=== PATIENT | male | born 1960 | race Caucasian/White ===

== ENCOUNTER 2021-12-02 00:01 | Inpatient (IN) | payer MEDICAID ==
[~2021-12-02] VITALS: Ht 175.3 cm; Wt 75.8 kg
[2021-12-02] VITALS (8 sets, daily range): BP systolic 96–132; BP diastolic 70–85
[2021-12-02] MEDS ORDERED: PIPERACILLIN-TAZOB 3.375GM 100 ML IV ONE (00:45)
[2021-12-02] MEDS ORDERED: ACETAMINOPHEN 650 mg PER 20.3 mL UD GT PRN (00:45)
[2021-12-02] MEDS ORDERED: ALBUTEROL SULF 2.5 MG/0.5ML(0.5%) NEB SOLN ONE (01:13)
[2021-12-02] MEDS ORDERED: BUPR150T8 PO (01:17)
[2021-12-02] MEDS ORDERED: HYDR-4798 (01:17)
[2021-12-02] MEDS ORDERED: TIZA4TAB9 PO (01:17)
[2021-12-02] MEDS ORDERED: GABA300C PO (01:17)
[2021-12-02] MEDS: HYDROcodone-ACET 10/325MG TAB PO PRN ×3 (01:55→17:50)
[2021-12-02 02:20] LABS: Basophils # (auto) 0 10 ^3/uL (0-0.2); Basophils % (auto) 0.4 % (0.0-2.0); Eosinophils # (auto) 0.1 10 ^3/uL (0-0.8); Eosinophils % (auto) 0.7 % (0.0-7.0); Hematocrit 35.8 % (41.0-53.0); Lymphocytes # (auto) 1.5 10 ^3/uL (0.4-5.4); Lymphocytes % (auto) 12.8 % (10.0-50.0); Mean Corpuscular Hemoglobin 30.9 pg (28.0-32.0); Mean Corpuscular Hgb Conc. 36.2 g/dL (32.0-36.0); Mean Corpuscular Volume 85.2 fL (80.0-100.0); Monocytes # (auto) 0.8 10 ^3/uL (0-1.3); Monocytes % (auto) 6.7 % (0.0-12.0); Neutrophils # (auto) 9.2 10 ^3/uL (1.6-8.6); Neutrophils % (auto) 79.4 % (37.0-80.0); Red Cell Distribution Width 12.7 % (11.8-14.3); White Blood Cell 11.5 10^3/uL (4.4-10.8)
[2021-12-02] MEDS: SODIUM CHLORIDE 0.9% 1,000 ML IV SCH ×2 (02:22→16:20)
[2021-12-02 02:34] LABS: Albumin 3.5 g/dL (3.4-5.0); BUN/Creatinine Ratio 13.9; Calcium 8.3 mg/dL (8.5-10.1)
[2021-12-02 02:37] LABS: Total Protein 6.9 g/dL (6.4-8.2)
[2021-12-02 02:44] LABS: Potassium 2.6 mmol/L (3.5-5.1)
[2021-12-02] MEDS ORDERED: SODIUM CHLORIDE 1 GM TAB PO ONE (03:00)
[2021-12-02] MEDS ORDERED: MIDAZOLAM HCL 2MG/2ML 2ml VIAL (1mg/ml) IV PRN ×2 (03:00→12:45)
[2021-12-02] MEDS: MORPHINE SULFATE INJ 2 MG/ml SYRG IV PRN ×3 (03:10→18:52)
[2021-12-02] MEDS ORDERED: SODIUM CHL 3% 500 ML IV ONE (03:30)
[2021-12-02] MEDS: ALBUTEROL SULF 2.5 MG/0.5ML(0.5%) NEB SOLN NEB PRN (05:39)
[2021-12-02] MEDS ORDERED: NITROGLYCERIN 0.4 MG SL TAB SL PRN ×2 (07:00)
[2021-12-02] MEDS ORDERED: MORPHINE SULFATE INJ 2 MG/ml SYRG IV PRN ×2 (07:00)
[2021-12-02] MEDS: POTASSIUM CHLORIDE 20 MEQ, LIDOCAINE 1% (LOCAL ANESTH.) 2 ML in SODIUM CHL 0.9% 100 ML IV SCH ×3 (07:01→19:13)
[2021-12-02] MEDS: PIPERACILLIN-TAZOB 3.375GM 100 ML IV SCH ×2 (09:46→17:37)
[2021-12-02] MEDS: PANTOPRAZOLE 40 MG/10 ML VIAL INJ IV SCH (09:46)
[2021-12-02 12:02] LABS: Magnesium 1.7 mg/dL (1.6-2.6); Phosphorus 2.3 mg/dL (2.5-4.90)
[2021-12-02 12:28] LABS: INR 0.94 (0.9-1.15); Partial Thromboplastin Time 27.2 sec (24.6-33.4)
[2021-12-02] MEDS ORDERED: LIDOCAINE 1% (LOCAL ANESTH.) PF 5ml SDV ID ONE (14:45)
[2021-12-02] MEDS: SODIUM CHLOR 0.9% PF (SALINE LOCK) 10ML VIAL/SYR IV SCH ×3 (15:33→21:46)
[2021-12-02 21:41] LABS: Albumin 2.8 g/dL (3.4-5.0); BUN/Creatinine Ratio 11.3; Calcium 7.4 mg/dL (8.5-10.1); Magnesium 1.5 mg/dL (1.6-2.6)
[2021-12-02 21:44] LABS: Total Protein 5.6 g/dL (6.4-8.2)
[2021-12-03] MEDS: SODIUM CHLORIDE 0.9% 1,000 ML IV SCH ×2 (01:28→14:06)
[2021-12-03] MEDS: PIPERACILLIN-TAZOB 3.375GM 100 ML IV SCH ×3 (01:31→18:40)
[2021-12-03] MEDS: HYDROcodone-ACET 10/325MG TAB PO PRN ×3 (02:08→19:06)
[2021-12-03 04:58] VITALS: BP 113/67
[2021-12-03 05:25] LABS: Calcium 7.2 mg/dL (8.5-10.1)
[2021-12-03 05:31] LABS: Albumin 2.6 g/dL (3.4-5.0); BUN/Creatinine Ratio 12.5; Bilirubin, Total 0.9 mg/dL (0.2-1.0); Total Protein 5.3 g/dL (6.4-8.2)
[2021-12-03] MEDS: SODIUM CHLOR 0.9% PF (SALINE LOCK) 10ML VIAL/SYR IV SCH ×5 (05:45→22:17)
[2021-12-03 05:47] LABS: Potassium 2.9 mmol/L (3.5-5.1)
[2021-12-03 05:54] LABS: Basophils # (auto) 0 10 ^3/uL (0-0.2); Basophils % (auto) 0.3 % (0.0-2.0); Eosinophils # (auto) 0.1 10 ^3/uL (0-0.8); Eosinophils % (auto) 0.6 % (0.0-7.0); Hematocrit 31.2 % (41.0-53.0); Hemoglobin 11.3 g/dL (13.5-17.5); Lymphocytes # (auto) 1.2 10 ^3/uL (0.4-5.4); Lymphocytes % (auto) 11.2 % (10.0-50.0); Mean Corpuscular Hemoglobin 30.7 pg (28.0-32.0); Mean Corpuscular Hgb Conc. 36.1 g/dL (32.0-36.0); Mean Corpuscular Volume 85.1 fL (80.0-100.0); Monocytes % (auto) 9.2 % (0.0-12.0); Neutrophils # (auto) 8.2 10 ^3/uL (1.6-8.6); Neutrophils % (auto) 78.7 % (37.0-80.0); Red Blood Cells 3.67 10^6/uL (4.5-5.90); Red Cell Distribution Width 12.6 % (11.8-14.3); White Blood Cell 10.4 10^3/uL (4.4-10.8)
[2021-12-03] MEDS ORDERED: POTASSIUM PHOSPHATE 26.4 MEQ in SODIUM CHL 0.9% 100 ML IV ONE (06:00)
[2021-12-03] MEDS: ALBUTEROL SULF 2.5 MG/0.5ML(0.5%) NEB SOLN NEB PRN (06:10)
[2021-12-03] MEDS: MAGNESIUM SULFATE 1GM/100ML 100 ML IV SCH ×2 (06:13→07:18)
[2021-12-03 08:00] VITALS: BP 101/63
[2021-12-03 09:00] VITALS: BP 101/63
[2021-12-03] MEDS: PANTOPRAZOLE 40 MG/10 ML VIAL INJ IV SCH (10:04)
[2021-12-03] MEDS: ACETAMINOPHEN 500 MG TAB PO PRN (12:25)
[2021-12-03 13:08] VITALS: BP 111/55
[2021-12-03 15:02] LABS: Calcium 7.1 mg/dL (8.5-10.1)
[2021-12-03] MEDS: POTASSIUM CHLORIDE 20 MEQ, LIDOCAINE 1% (LOCAL ANESTH.) 2 ML in SODIUM CHL 0.9% 100 ML IV SCH ×3 (15:02→20:46)
[2021-12-03] MEDS: MORPHINE SULFATE INJ 2 MG/ml SYRG IV PRN (15:10)
[2021-12-03 15:36] LABS: Potassium 2.6 mmol/L (3.5-5.1)
[2021-12-03] MEDS ORDERED: SODIUM CHL 3% 500 ML IV ONE (16:00)
[2021-12-03 17:00] VITALS: BP 107/62
[2021-12-03 22:00] VITALS: BP 116/66
[2021-12-04] MEDS: PIPERACILLIN-TAZOB 3.375GM 100 ML IV SCH ×3 (02:13→18:27)
[2021-12-04] MEDS: SODIUM CHLORIDE 0.9% 1,000 ML IV SCH ×2 (02:23→15:15)
[2021-12-04 05:00] VITALS: BP 116/92
[2021-12-04] MEDS: SODIUM CHLOR 0.9% PF (SALINE LOCK) 10ML VIAL/SYR IV SCH ×5 (05:12→22:59)
[2021-12-04 09:03] VITALS: BP 108/57
[2021-12-04] MEDS: PANTOPRAZOLE 40 MG/10 ML VIAL INJ IV SCH (10:00)
[2021-12-04 13:00] VITALS: BP 124/67
[2021-12-04 14:16] LABS: Albumin 2.5 g/dL (3.4-5.0); Calcium 7.2 mg/dL (8.5-10.1)
[2021-12-04 14:19] LABS: BUN/Creatinine Ratio 8.3; Bilirubin, Total 0.9 mg/dL (0.2-1.0); Total Protein 5.3 g/dL (6.4-8.2)
[2021-12-04 14:25] LABS: Potassium 2.5 mmol/L (3.5-5.1)
[2021-12-04 17:00] VITALS: BP 130/68
[2021-12-04] MEDS ORDERED: POTASSIUM CHL 20MEQ/100ML 100 ML IV SCH (19:45)
[2021-12-04] MEDS ORDERED: SODIUM CHL 3% 500 ML IV ONE ×2 (19:45)
[2021-12-04 20:11] LABS: Magnesium 1.6 mg/dL (1.6-2.6); Phosphorus 1.6 mg/dL (2.5-4.90)
[2021-12-04] MEDS ORDERED: POTASSIUM CHLORIDE 20 MEQ, LIDOCAINE 1% (LOCAL ANESTH.) 2 ML in SODIUM CHL 0.9% 100 ML IV SCH (21:00)
[2021-12-04] MEDS: MAGNESIUM SULFATE 1GM/100ML 100 ML IV SCH ×2 (21:39→22:58)
[2021-12-04] MEDS: POTASSIUM CHL 20MEQ/100ML 100 ML IV SCH (21:42)
[2021-12-04 22:50] VITALS: BP 109/71
[2021-12-04] MEDS: DEMECLOCYCLINE HCL 150 MG TAB PO SCH (22:59)
[2021-12-04] MEDS: ACETAMINOPHEN 500 MG TAB PO PRN (23:59)
[2021-12-05] MEDS: POTASSIUM CHL 20MEQ/100ML 100 ML IV SCH ×5 (01:16→16:48)
[2021-12-05 01:29] VITALS: BP 109/71
[2021-12-05] MEDS: PIPERACILLIN-TAZOB 3.375GM 100 ML IV SCH ×2 (01:36→09:27)
[2021-12-05] MEDS: SODIUM CHLOR 0.9% PF (SALINE LOCK) 10ML VIAL/SYR IV SCH ×5 (05:04→21:42)
[2021-12-05 05:15] VITALS: BP 116/70
[2021-12-05 06:31] LABS: Albumin 2.6 g/dL (3.4-5.0); Bilirubin, Total 0.9 mg/dL (0.2-1.0); Magnesium 1.8 mg/dL (1.6-2.6); Phosphorus 1.4 mg/dL (2.5-4.90); Total Protein 5.5 g/dL (6.4-8.2)
[2021-12-05 06:32] LABS: Potassium 2.5 mmol/L (3.5-5.1)
[2021-12-05 06:44] LABS: Basophils # (auto) 0 10 ^3/uL (0-0.2); Basophils % (auto) 0.4 % (0.0-2.0); Eosinophils # (auto) 0.1 10 ^3/uL (0-0.8); Eosinophils % (auto) 0.6 % (0.0-7.0); Hematocrit 31.4 % (41.0-53.0); Hemoglobin 11.4 g/dL (13.5-17.5); Lymphocytes # (auto) 1.2 10 ^3/uL (0.4-5.4); Lymphocytes % (auto) 11.3 % (10.0-50.0); Mean Corpuscular Hemoglobin 30.4 pg (28.0-32.0); Mean Corpuscular Hgb Conc. 36.2 g/dL (32.0-36.0); Neutrophils # (auto) 8.5 10 ^3/uL (1.6-8.6); Neutrophils % (auto) 78.7 % (37.0-80.0); Red Blood Cells 3.74 10^6/uL (4.5-5.90); Red Cell Distribution Width 13.1 % (11.8-14.3); White Blood Cell 10.8 10^3/uL (4.4-10.8)
[2021-12-05] MEDS: PANTOPRAZOLE 40 MG/10 ML VIAL INJ IV SCH (09:27)
[2021-12-05] MEDS: DEMECLOCYCLINE HCL 150 MG TAB PO SCH ×2 (09:32→21:41)
[2021-12-05] MEDS ORDERED: POTASSIUM CHL 20MEQ/100ML 100 ML IV SCH (10:30)
[2021-12-05] MEDS ORDERED: SODIUM CHL 3% 500 ML IV ONE (10:30)
[2021-12-05] MEDS ORDERED: MAGNESIUM SULFATE 1GM/100ML 100 ML IV PRN ×2 (10:30)
[2021-12-05 13:00] VITALS: BP 116/75
[2021-12-05 16:37] VITALS: BP 134/83
[2021-12-05] MEDS: HYDROcodone-ACET 10/325MG TAB PO PRN ×2 (16:47→22:40)
[2021-12-05] MEDS: cefTRIAXone 1GM/50ML D5W 50 ML IV SCH (16:48)
[2021-12-05] MEDS: MAGNESIUM SULFATE 1GM/100ML 100 ML IV PRN (21:42)
[2021-12-05 22:00] VITALS: BP 112/73
[2021-12-06 05:00] VITALS: BP 131/78
[2021-12-06] MEDS: SODIUM CHLOR 0.9% PF (SALINE LOCK) 10ML VIAL/SYR IV SCH ×5 (06:07→21:18)
[2021-12-06 09:00] VITALS: BP 132/77
[2021-12-06] MEDS: PANTOPRAZOLE 40 MG/10 ML VIAL INJ IV SCH (09:28)
[2021-12-06] MEDS: cefTRIAXone 1GM/50ML D5W 50 ML IV SCH (09:28)
[2021-12-06] MEDS: DEMECLOCYCLINE HCL 150 MG TAB PO SCH ×2 (09:29→22:39)
[2021-12-06] MEDS: HYDROcodone-ACET 10/325MG TAB PO PRN ×2 (09:30→19:54)
[2021-12-06 11:11] LABS: Albumin 2.6 g/dL (3.4-5.0); BUN/Creatinine Ratio 6.4; Calcium 7.1 mg/dL (8.5-10.1)
[2021-12-06 11:13] LABS: Bilirubin, Total 0.5 mg/dL (0.2-1.0); Total Protein 5.7 g/dL (6.4-8.2)
[2021-12-06 11:30] LABS: Potassium 2.3 mmol/L (3.5-5.1)
[2021-12-06] MEDS ORDERED: SODIUM CHL 3% 250 ML IV ONE (12:30)
[2021-12-06 13:00] VITALS: BP 108/59
[2021-12-06] MEDS: POTASSIUM CHL 20 Meq TABLET PO SCH ×2 (13:09→17:20)
[2021-12-06 17:00] VITALS: BP 118/71
[2021-12-06 22:00] VITALS: BP 100/52
[2021-12-07] MEDS: POTASSIUM CHL 20 Meq TABLET PO SCH ×4 (00:38→23:24)
[2021-12-07 05:00] VITALS: BP 125/74
[2021-12-07] MEDS: SODIUM CHLOR 0.9% PF (SALINE LOCK) 10ML VIAL/SYR IV SCH ×5 (06:29→23:21)
[2021-12-07] MEDS: HYDROcodone-ACET 10/325MG TAB PO PRN ×2 (06:52→15:32)
[2021-12-07 07:48] LABS: BUN/Creatinine Ratio 7.4; Calcium 7.7 mg/dL (8.5-10.1); Magnesium 1.8 mg/dL (1.6-2.6)
[2021-12-07 08:19] LABS: Potassium 2.7 mmol/L (3.5-5.1)
[2021-12-07] MEDS ORDERED: POTASSIUM CHL 20 Meq TABLET PO SCH (08:30)
[2021-12-07 09:00] VITALS: BP 133/76
[2021-12-07] MEDS: cefTRIAXone 1GM/50ML D5W 50 ML IV SCH (09:00)
[2021-12-07] MEDS ORDERED: POTASSIUM CHL 20MEQ/100ML 100 ML IV SCH ×3 (09:00→19:30)
[2021-12-07] MEDS: PANTOPRAZOLE 40 MG/10 ML VIAL INJ IV SCH (10:00)
[2021-12-07] MEDS: DEMECLOCYCLINE HCL 150 MG TAB PO SCH ×2 (12:48→23:22)
[2021-12-07] MEDS ORDERED: MAGNESIUM SULFATE 1GM/100ML 100 ML IV ONE ×2 (15:30→17:00)
[2021-12-07 17:00] VITALS: BP 123/73
[2021-12-07] MEDS ORDERED: SODIUM CHL 3% 250 ML IV ONE (18:30)
[2021-12-07] MEDS: MAGNESIUM SULFATE 1GM/100ML 100 ML IV PRN (18:58)
[2021-12-07 22:00] VITALS: BP 128/82
[2021-12-08] MEDS: HYDROcodone-ACET 10/325MG TAB PO PRN ×3 (02:16→16:03)
[2021-12-08] MEDS: POTASSIUM CHL 20 Meq TABLET PO SCH ×4 (02:16→15:56)
[2021-12-08 05:00] VITALS: BP 122/88
[2021-12-08 06:34] LABS: Calcium 7.5 mg/dL (8.5-10.1); Magnesium 2.1 mg/dL (1.6-2.6); Potassium 3.3 mmol/L (3.5-5.1)
[2021-12-08] MEDS: SODIUM CHLOR 0.9% PF (SALINE LOCK) 10ML VIAL/SYR IV SCH ×5 (06:34→23:15)
[2021-12-08] MEDS ORDERED: SODIUM CHL 3% 300 ML IV ONE (07:30)
[2021-12-08 09:00] VITALS: BP 115/79
[2021-12-08] MEDS: POTASSIUM CHL 20MEQ/100ML 100 ML IV SCH ×2 (09:03→15:55)
[2021-12-08] MEDS: PANTOPRAZOLE 40 MG/10 ML VIAL INJ IV SCH (09:04)
[2021-12-08] MEDS: cefTRIAXone 1GM/50ML D5W 50 ML IV SCH (09:04)
[2021-12-08] MEDS: DEMECLOCYCLINE HCL 150 MG TAB PO SCH ×2 (09:27→23:15)
[2021-12-08 13:00] VITALS: BP 125/75
[2021-12-08 17:00] VITALS: BP 110/71
[2021-12-08 22:00] VITALS: BP 101/56
[2021-12-09] VITALS (7 sets, daily range): BP systolic 122–141; BP diastolic 68–91
[2021-12-09] MEDS: HYDROcodone-ACET 10/325MG TAB PO PRN ×3 (02:28→22:07)
[2021-12-09] MEDS: SODIUM CHLOR 0.9% PF (SALINE LOCK) 10ML VIAL/SYR IV SCH ×5 (05:13→22:22)
[2021-12-09 10:38] LABS: Calcium 7.8 mg/dL (8.5-10.1); Potassium 3.4 mmol/L (3.5-5.1)
[2021-12-09 10:44] LABS: Albumin 2.8 g/dL (3.4-5.0); BUN/Creatinine Ratio 11.5; Bilirubin, Total 0.3 mg/dL (0.2-1.0); Magnesium 1.8 mg/dL (1.6-2.6)
[2021-12-09] MEDS: cefTRIAXone 1GM/50ML D5W 50 ML IV SCH (11:12)
[2021-12-09] MEDS: PANTOPRAZOLE 40 MG/10 ML VIAL INJ IV SCH (11:12)
[2021-12-09] MEDS: DEMECLOCYCLINE HCL 150 MG TAB PO SCH ×2 (11:13→22:22)
[2021-12-09] MEDS ORDERED: POTASSIUM CHL 20MEQ/100ML 100 ML IV ONE (11:20)
[2021-12-09] MEDS: POTASSIUM CHL 20MEQ/100ML 100 ML IV SCH ×2 (12:08→16:58)
[2021-12-09] MEDS: MAGNESIUM SULFATE 1GM/100ML 100 ML IV SCH ×2 (15:36→16:59)
[2021-12-09] MEDS ORDERED: SODIUM CHL 3% 250 ML IV ONE (18:15)
[2021-12-09 19:07] LABS: Calcium 8.4 mg/dL (8.5-10.1); Magnesium 2.2 mg/dL (1.6-2.6); Potassium 4.1 mmol/L (3.5-5.1)
[2021-12-09 19:10] LABS: BUN/Creatinine Ratio 11.6
[2021-12-09] MEDS ORDERED: ZOLPIDEM TARTRATE 5 MG TAB PO ONE (22:00)
[2021-12-10 05:00] VITALS: BP 139/77
[2021-12-10] MEDS: SODIUM CHLOR 0.9% PF (SALINE LOCK) 10ML VIAL/SYR IV SCH ×5 (06:28→22:17)
[2021-12-10 07:34] LABS: BUN/Creatinine Ratio 12.1; Calcium 7.9 mg/dL (8.5-10.1); Potassium 3.6 mmol/L (3.5-5.1)
[2021-12-10 07:37] LABS: Bilirubin, Total 0.5 mg/dL (0.2-1.0); Total Protein 6.2 g/dL (6.4-8.2)
[2021-12-10 08:00] VITALS: BP 141/75
[2021-12-10] MEDS ORDERED: POTASSIUM CHL 20MEQ/100ML 100 ML IV ONE (08:15)
[2021-12-10] MEDS ORDERED: SODIUM CHL 3% 300 ML IV ONE (08:15)
[2021-12-10 08:21] VITALS: BP 143/93
[2021-12-10] MEDS: cefTRIAXone 1GM/50ML D5W 50 ML IV SCH (09:33)
[2021-12-10] MEDS: HYDROcodone-ACET 10/325MG TAB PO PRN ×2 (09:33→22:18)
[2021-12-10] MEDS: PANTOPRAZOLE 40 MG/10 ML VIAL INJ IV SCH (09:34)
[2021-12-10] MEDS: DEMECLOCYCLINE HCL 150 MG TAB PO SCH ×2 (09:35→22:17)
[2021-12-10 12:00] VITALS: BP 141/85
[2021-12-10] MEDS: MORPHINE SULFATE INJ 2 MG/ml SYRG IV PRN (13:32)
[2021-12-10 16:45] VITALS: BP 131/84
[2021-12-10 22:00] VITALS: BP 155/87
[2021-12-10] MEDS: POTASSIUM CHL 20 Meq TABLET PO SCH (22:18)
[2021-12-10] MEDS: ZOLPIDEM TARTRATE 5 MG TAB PO PRN (22:31)
[2021-12-11 05:00] VITALS: BP 141/78
[2021-12-11 05:14] LABS: Basophils # (auto) 0.1 10 ^3/uL (0-0.2); Basophils % (auto) 1.2 % (0.0-2.0); Eosinophils # (auto) 0.2 10 ^3/uL (0-0.8); Eosinophils % (auto) 2.4 % (0.0-7.0); Hematocrit 33.8 % (41.0-53.0); Hemoglobin 11.9 g/dL (13.5-17.5); Lymphocytes # (auto) 1.3 10 ^3/uL (0.4-5.4); Lymphocytes % (auto) 18.7 % (10.0-50.0); Mean Corpuscular Hemoglobin 30.3 pg (28.0-32.0); Mean Corpuscular Hgb Conc. 35.3 g/dL (32.0-36.0); Mean Corpuscular Volume 85.8 fL (80.0-100.0); Monocytes # (auto) 0.8 10 ^3/uL (0-1.3); Monocytes % (auto) 10.8 % (0.0-12.0); Neutrophils # (auto) 4.8 10 ^3/uL (1.6-8.6); Neutrophils % (auto) 66.9 % (37.0-80.0); Red Blood Cells 3.94 10^6/uL (4.5-5.90); Red Cell Distribution Width 13.6 % (11.8-14.3); White Blood Cell 7.2 10^3/uL (4.4-10.8)
[2021-12-11 05:42] LABS: BUN/Creatinine Ratio 21.2; Calcium 8.1 mg/dL (8.5-10.1); Potassium 3.3 mmol/L (3.5-5.1)
[2021-12-11] MEDS: SODIUM CHLOR 0.9% PF (SALINE LOCK) 10ML VIAL/SYR IV SCH ×5 (06:45→21:47)
[2021-12-11 08:53] VITALS: BP 158/95
[2021-12-11] MEDS: PANTOPRAZOLE 40 MG/10 ML VIAL INJ IV SCH (09:57)
[2021-12-11] MEDS: cefTRIAXone 1GM/50ML D5W 50 ML IV SCH (09:57)
[2021-12-11] MEDS: POTASSIUM CHL 20 Meq TABLET PO SCH ×2 (10:08→21:48)
[2021-12-11] MEDS: HYDROcodone-ACET 10/325MG TAB PO PRN ×2 (10:09→19:33)
[2021-12-11 12:51] VITALS: BP 147/81
[2021-12-11] MEDS: DEMECLOCYCLINE HCL 150 MG TAB PO SCH ×2 (12:53→21:47)
[2021-12-11] MEDS ORDERED: SODIUM CHL 3% 300 ML IV ONE (16:00)
[2021-12-11] MEDS ORDERED: POTASSIUM CHL 20 Meq TABLET PO ONE (16:15)
[2021-12-11 17:00] VITALS: BP 151/90
[2021-12-11] MEDS: ZOLPIDEM TARTRATE 5 MG TAB PO PRN (21:48)
[2021-12-11 22:00] VITALS: BP 122/69
[2021-12-11 23:30] LABS: Calcium 7.8 mg/dL (8.5-10.1); Potassium 3.4 mmol/L (3.5-5.1)
[2021-12-12] MEDS: POTASSIUM CHL 20MEQ/100ML 100 ML IV SCH ×2 (00:52→06:07)
[2021-12-12] MEDS: HYDROcodone-ACET 10/325MG TAB PO PRN ×3 (04:47→22:59)
[2021-12-12 05:00] VITALS: BP 155/84
[2021-12-12] MEDS: SODIUM CHLOR 0.9% PF (SALINE LOCK) 10ML VIAL/SYR IV SCH ×5 (06:08→21:32)
[2021-12-12 06:21] LABS: BUN/Creatinine Ratio 21.1; Calcium 7.9 mg/dL (8.5-10.1); Potassium 4.1 mmol/L (3.5-5.1)
[2021-12-12 09:00] VITALS: BP 136/86
[2021-12-12] MEDS: PANTOPRAZOLE 40 MG/10 ML VIAL INJ IV SCH (11:21)
[2021-12-12] MEDS: cefTRIAXone 1GM/50ML D5W 50 ML IV SCH (11:21)
[2021-12-12] MEDS: DEMECLOCYCLINE HCL 150 MG TAB PO SCH ×2 (11:22→21:32)
[2021-12-12] MEDS: POTASSIUM CHL 20 Meq TABLET PO SCH ×2 (11:23→21:31)
[2021-12-12 13:00] VITALS: BP 149/89
[2021-12-12] MEDS ORDERED: SODIUM CHL 3% 500 ML IV ONE (16:15)
[2021-12-12 16:22] VITALS: BP 148/91
[2021-12-12 20:35] LABS: BUN/Creatinine Ratio 21.5; Calcium 8.1 mg/dL (8.5-10.1); Potassium 3.8 mmol/L (3.5-5.1)
[2021-12-12 22:00] VITALS: BP 146/83
[2021-12-13 05:00] VITALS: BP 156/93
[2021-12-13] MEDS: HYDROcodone-ACET 10/325MG TAB PO PRN ×3 (05:03→18:08)
[2021-12-13] MEDS: SODIUM CHLOR 0.9% PF (SALINE LOCK) 10ML VIAL/SYR IV SCH ×5 (05:04→22:52)
[2021-12-13 09:00] VITALS: BP 147/92
[2021-12-13] MEDS: POTASSIUM CHL 20 Meq TABLET PO SCH ×2 (09:45→22:53)
[2021-12-13] MEDS: cefTRIAXone SODIUM 1,000 MG in SODIUM CHL 0.9% 50 ML IV SCH (09:45)
[2021-12-13] MEDS: PANTOPRAZOLE 40 MG/10 ML VIAL INJ IV SCH (09:45)
[2021-12-13] MEDS: DEMECLOCYCLINE HCL 150 MG TAB PO SCH ×2 (09:46→22:53)
[2021-12-13 10:05] LABS: Calcium 7.8 mg/dL (8.5-10.1); Potassium 3.6 mmol/L (3.5-5.1)
[2021-12-13 10:08] LABS: BUN/Creatinine Ratio 18.8
[2021-12-13] MEDS ORDERED: SODIUM CHL 3% IV ONE (12:15)
[2021-12-13 13:00] VITALS: BP 140/79
[2021-12-13 16:47] VITALS: BP 139/83
[2021-12-13 19:48] LABS: Calcium 7.9 mg/dL (8.5-10.1); Potassium 3.7 mmol/L (3.5-5.1)
[2021-12-13 19:50] LABS: BUN/Creatinine Ratio 19.2
[2021-12-13 21:56] VITALS: BP 141/85
[2021-12-14] MEDS: HYDROcodone-ACET 10/325MG TAB PO PRN ×5 (00:14→21:52)
[2021-12-14 04:32] VITALS: BP 161/91
[2021-12-14] MEDS: SODIUM CHLOR 0.9% PF (SALINE LOCK) 10ML VIAL/SYR IV SCH ×5 (05:58→21:31)
[2021-12-14 06:34] LABS: Calcium 8.1 mg/dL (8.5-10.1)
[2021-12-14 06:37] LABS: BUN/Creatinine Ratio 16.9
[2021-12-14] MEDS: DEMECLOCYCLINE HCL 150 MG TAB PO SCH ×2 (08:33→21:29)
[2021-12-14] MEDS: cefTRIAXone SODIUM 1,000 MG in SODIUM CHL 0.9% 50 ML IV SCH (08:33)
[2021-12-14] MEDS: PANTOPRAZOLE 40 MG/10 ML VIAL INJ IV SCH (08:33)
[2021-12-14] MEDS: POTASSIUM CHL 20 Meq TABLET PO SCH ×2 (08:34→21:30)
[2021-12-14 09:00] VITALS: BP 132/77
[2021-12-14 13:00] VITALS: BP 154/88
[2021-12-14 13:55] LABS: INR 0.97 (0.9-1.15)
[2021-12-14] MEDS ORDERED: SODIUM CHL 3% 250 ML IV ONE (15:00)
[2021-12-14 17:00] VITALS: BP 143/89
[2021-12-14] MEDS ORDERED: SODIUM CHL 3% 150 ML IV ONE (17:30)
[2021-12-14 20:46] LABS: BUN/Creatinine Ratio 18.2; Potassium 3.7 mmol/L (3.5-5.1)
[2021-12-14 22:00] VITALS: BP 129/81
[2021-12-15] MEDS: HYDROcodone-ACET 10/325MG TAB PO PRN ×3 (04:15→22:11)
[2021-12-15 05:00] VITALS: BP 152/83
[2021-12-15 05:36] LABS: Albumin 3.1 g/dL (3.4-5.0); BUN/Creatinine Ratio 18.8; Bilirubin, Total 0.6 mg/dL (0.2-1.0); Calcium 8.2 mg/dL (8.5-10.1); Total Protein 5.9 g/dL (6.4-8.2)
[2021-12-15] MEDS: SODIUM CHLOR 0.9% PF (SALINE LOCK) 10ML VIAL/SYR IV SCH ×5 (07:20→22:08)
[2021-12-15 09:00] VITALS: BP 144/86
[2021-12-15 09:25] LABS: Albumin 3.1 g/dL (3.4-5.0); Calcium 8.1 mg/dL (8.5-10.1); Potassium 3.5 mmol/L (3.5-5.1)
[2021-12-15 09:29] LABS: BUN/Creatinine Ratio 15.7; Bilirubin, Total 0.7 mg/dL (0.2-1.0); Total Protein 6.7 g/dL (6.4-8.2)
[2021-12-15] MEDS: cefTRIAXone SODIUM 1,000 MG in SODIUM CHL 0.9% 50 ML IV SCH (10:00)
[2021-12-15] MEDS: POTASSIUM CHL 20 Meq TABLET PO SCH ×2 (10:00→22:07)
[2021-12-15] MEDS: PANTOPRAZOLE 40 MG/10 ML VIAL INJ IV SCH (10:00)
[2021-12-15] MEDS: DEMECLOCYCLINE HCL 150 MG TAB PO SCH ×2 (10:10→22:08)
[2021-12-15 10:39] LABS: Basophils # (auto) 0.1 10 ^3/uL (0-0.2); Basophils % (auto) 1.1 % (0.0-2.0); Eosinophils # (auto) 0.1 10 ^3/uL (0-0.8); Eosinophils % (auto) 1.8 % (0.0-7.0); Hematocrit 34.5 % (41.0-53.0); Hemoglobin 11.9 g/dL (13.5-17.5); Lymphocytes # (auto) 1.2 10 ^3/uL (0.4-5.4); Lymphocytes % (auto) 17.7 % (10.0-50.0); Mean Corpuscular Hemoglobin 30.5 pg (28.0-32.0); Mean Corpuscular Hgb Conc. 34.4 g/dL (32.0-36.0); Mean Corpuscular Volume 88.7 fL (80.0-100.0); Monocytes % (auto) 14.7 % (0.0-12.0); Neutrophils # (auto) 4.4 10 ^3/uL (1.6-8.6); Neutrophils % (auto) 64.7 % (37.0-80.0); Nucleated Red Blood Cells % 0.1 %; Red Blood Cells 3.89 10^6/uL (4.5-5.90); Red Cell Distribution Width 13.5 % (11.8-14.3); White Blood Cell 6.9 10^3/uL (4.4-10.8)
[2021-12-15] MEDS ORDERED: SODIUM CHL 3% 500 ML IV ONE (11:15)
[2021-12-15 13:33] VITALS: BP 146/88
[2021-12-15 16:57] VITALS: BP 149/86
[2021-12-15 22:00] VITALS: BP 151/87
[2021-12-16 05:00] VITALS: BP 160/90
[2021-12-16 05:01] LABS: Albumin 3.1 g/dL (3.4-5.0); BUN/Creatinine Ratio 23.7; Potassium 3.5 mmol/L (3.5-5.1)
[2021-12-16 05:04] LABS: Bilirubin, Total 0.5 mg/dL (0.2-1.0); Total Protein 6.2 g/dL (6.4-8.2)
[2021-12-16] MEDS: SODIUM CHLOR 0.9% PF (SALINE LOCK) 10ML VIAL/SYR IV SCH ×5 (06:06→21:43)
[2021-12-16] MEDS: HYDROcodone-ACET 10/325MG TAB PO PRN ×3 (06:06→20:34)
[2021-12-16 09:00] VITALS: BP 156/89
[2021-12-16] MEDS ORDERED: cefTRIAXone 1GM/50ML D5W 0 ML IV ONE (10:32)
[2021-12-16 10:41] LABS: BUN/Creatinine Ratio 19.7; Potassium 3.6 mmol/L (3.5-5.1)
[2021-12-16] MEDS: POTASSIUM CHL 20 Meq TABLET PO SCH ×2 (10:43→21:44)
[2021-12-16] MEDS: PANTOPRAZOLE 40 MG/10 ML VIAL INJ IV SCH ×2 (10:43→23:42)
[2021-12-16] MEDS: DEMECLOCYCLINE HCL 150 MG TAB PO SCH ×2 (10:43→21:43)
[2021-12-16] MEDS: cefTRIAXone SODIUM 1,000 MG in SODIUM CHL 0.9% 50 ML IV SCH (10:55)
[2021-12-16 13:00] VITALS: BP 131/76
[2021-12-16 17:00] VITALS: BP 145/86
[2021-12-16] MEDS ORDERED: SODIUM CHL 3% 500 ML IV ONE (19:00)
[2021-12-16 22:00] VITALS: BP 128/86
[2021-12-17 05:00] VITALS: BP 126/84
[2021-12-17] MEDS: SODIUM CHLOR 0.9% PF (SALINE LOCK) 10ML VIAL/SYR IV SCH ×3 (05:08→14:00)
[2021-12-17 09:00] VITALS: BP 148/87
[2021-12-17 09:07] LABS: BUN/Creatinine Ratio 16.9
[2021-12-17] MEDS: DEMECLOCYCLINE HCL 150 MG TAB PO SCH (09:30)
[2021-12-17] MEDS: POTASSIUM CHL 20 Meq TABLET PO SCH (09:30)
[2021-12-17] MEDS: HYDROcodone-ACET 10/325MG TAB PO PRN ×2 (09:30→15:51)
[2021-12-17] MEDS: PANTOPRAZOLE 40 MG/10 ML VIAL INJ IV SCH (09:31)
[2021-12-17] MEDS: cefTRIAXone SODIUM 1,000 MG in SODIUM CHL 0.9% 50 ML IV SCH (09:45)
[2021-12-17 13:00] VITALS: BP 118/83
[2021-12-17] MEDS ORDERED: [UNRECOGNIZED DRUG - CODE] PO (14:38)
[2021-12-17] MEDS ORDERED: SODIGRA31 XX (14:38)
[2021-12-17 17:00] VITALS: BP 139/87
[2021-12-17 17:31] VITALS: BP 139/87
== END 2021-12-17 18:40 | disposition home or self-care (01) | DRG 139 ==
LOC: EAST 00:01 → TELE-EAST 06:59
PROVIDERS: ADMIT Specialist; ATTEND Specialist
PROC: 02HV33Z Insertion of Infusion Device into Superior Vena Cava, Percutaneous Approach (ICD-10-PCS; principal; 2021-12-02)
DX: J18.9 Pneumonia, unspecified organism (principal); E22.2 Syndrome of inappropriate secretion of antidiuretic hormone; E87.8 Other disorders of electrolyte and fluid balance, not elsewhere classified; R56.9 Unspecified convulsions; E83.51 Hypocalcemia; J44.0 Chronic obstructive pulmonary disease with (acute) lower respiratory infection; E87.6 Hypokalemia; Z20.822 Contact with and (suspected) exposure to COVID-19; F17.200 Nicotine dependence, unspecified, uncomplicated; J98.11 Atelectasis; R91.8 Other nonspecific abnormal finding of lung field; E83.42 Hypomagnesemia; J98.4 Other disorders of lung; F17.210 Nicotine dependence, cigarettes, uncomplicated; K76.9 Liver disease, unspecified; M54.12 Radiculopathy, cervical region; E86.1 Hypovolemia; G47.10 Hypersomnia, unspecified; Z82.3 Family history of stroke; Z80.3 Family history of malignant neoplasm of breast; Z79.1 Long term (current) use of non-steroidal anti-inflammatories (NSAID); Z71.6 Tobacco abuse counseling
CPT/HCPCS: 36415; 36569; 71045; 71250; 72040; 76604; 80048; 80053; 82533; 83615; 83735; 83930; 83935; 84100; 84443; 85025; 85610; 85730; 87040; 87070; 87205; 94640; C9113; G0378; J0696; J2001; J2543; J3480